=== PATIENT | male | born 1970 | race Caucasian/White ===

== ENCOUNTER → 2017-12-22 | Outpatient (CLI) | payer OTHER ==
[~2017-12-22] MED LIST: OPTIRAY 320 IV PRN
--- NOTE | 2017-12-22 11:42 | DIAGNOSTIC IMAGING REPORT ---
CT NECK WITH INTRAVENOUS CONTRAST HISTORY: Right facial pain. PAROTITIS TECHNIQUE: Multiaxial CT images of the neck performed following the use of intravenous contrast. COMPARISON STUDY: None. FINDINGS: The visualized brain parenchyma and orbits are unremarkable. There are few punctate calcifications within the left palatine tonsil. Otherwise, the major mucosal airway surfaces are intact. The prevertebral soft tissues and epiglottis are normal in thickness. The thyroid gland enhances normally. The visualized lungs are clear. No suspicious lytic or blastic osseous lesions. Mild mucosal thickening within the floor the left maxillary sinus and left sphenoid sinus. There is also mild mucosal thickening within the ethmoid air cells and left deviation of the nasal septum. Old, healed nasal bone fractures. The left parotid gland and submandibular glands enhance symmetrically. There is mild enhancement primarily within the superficial lobe of the right parotid gland. There is minimal adjacent fat stranding. The right parotid gland duct is normal in course and caliber. No stones identified within the duct. No significant cervical lymphadenopathy. The major cervical vessels enhance normally. However, both distal vertebral arteries are hypoplastic. 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 Therefore, this results in perfusion of the posterior circulation. IMPRESSION: 1. Asymmetric enhancement within the right parotid gland with minimal surrounding fat stranding. This is consistent with a parotitis. The right parotid gland duct is normal in caliber. No stones identified. . 2. 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 This results in perfusion of the posterior circulation of the brain. Electronically signed by: Adair Araujo M.D. 12/22/2017 11:41 AM Dictated Date/Time: 12/22/2017 11:27 AM
== END | disposition home or self-care (01) ==
LOC: C.CTS 11:05
PROVIDERS: ATTEND Nurse Practitioner Family
DX: K11.20 Sialoadenitis, unspecified (principal)

== ENCOUNTER 2021-01-20 05:10 | Inpatient (IN) ==
--- NOTE | 2020-12-25 14:00 | PAT Medication Instructions ---
Medication Instructions Date of Service December 25, 2020 Home Medications calcium carbonate [Tums] 300 mg PO BID PRN celecoxib [Celebrex] 100 mg PO BID cetirizine 10 mg PO QAM ASK your surgeon for instructions celecoxib [Celebrex] 100 mg PO BID DO NOT take the morning of surgery calcium carbonate [Tums] 300 mg PO BID PRN cetirizine 10 mg PO QAM Take evening before surgery calcium carbonate [Tums] 300 mg PO BID PRN (if needed) Other Notes If you have any questions please call us at [phone] or [phone] or [phone] or [phone]
--- NOTE | 2020-12-31 11:52 | Anesthesiology Consultation ---
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 Wears PPE, follows strict COVID guidelines. Patient fully vaccinated. No known COVID-19 positive contacts or current COVID-19 related symptoms. Surgeon arranging preop COVID testing (scheduled 01/15; [facility]). Awaiting results. Chart Review Chart Review: Acceptable Risk for Surgery and Patient seen in Pre Admission Testing Teaching & Discussion Pre-Anesthesia Teaching/Discussion Notes: Instructed NPO after midnight before surgery,except medications with 15 cc of water. Medication instructions provided according to the PAT guidelines. History Surgery Operation Date: 01/20/21 09:15 Proposed Procedures p Right Anterior Total Hip Arthroplasty - Varinder Saldaña DO Height/Weight Height: 6 ft 4 in Weight: 134.4 kg Allergies Allergy/AdvReac Type Severity Reaction Status Date / Time No Known Allergies Allergy Verified 12/25/20 08:50 Medications Home Medications Medication Instructions Recorded Confirmed Last Taken calcium carbonate [Tums] 300 mg PO BID PRN 12/25/20 12/25/20 Unknown celecoxib [Celebrex] 100 mg PO BID 12/25/20 12/25/20 Unknown cetirizine 10 mg PO QAM 12/25/20 12/25/20 Unknown Past Medical History Medical History Acid reflux Obesity Osteoarthritis Exercise / Class Metabolic Activity II 4-5 Yardwork/Stairs/Walk up hill (one flight of stairs (no chest pain/no sob)) Past Family History Family History Father Diabetes Past Surgical History Surgical History History of arthroscopy Left knee Hx of lymph node excision Cervical (as child) [place] teeth extracted Past Anesthesia History No Hx of Anesthesia Complications and No Family Hx of Anesthesia Complications History of PONV No Hx of PONV and Hx of Motion Sickness (As child, no recent issues) Social History Smoking Status: Never smoker Do You Dip or Chew Tobacco: No (quit 20 yrs ago) Hx Alcohol Use: Yes Alcohol type: beer alcohol intake frequency: holidays/special occasions only Hx Substance Use: No substance use type: does not use Review of Systems + snoring. No witnessed apnea events. Patient denies chest pain, shortness of breath, dyspnea on exertion, fever, chills, cough, wheezing, palpitations. Physical Exam Vital Signs VITALS BP 123/72 P 64 TEMP 98.4 SP02 96%RA RESP 16 PHYSICAL Full cervical extension range of motion. Full TMJ range of motion. TMD 3.5 finger breaths Mallampati Score 3 Dentition: intact Lungs: clear throughout to auscultation Cardiac: regular rate and rhythm, no murmurs noted Spine: normal Carotid arteries: negative bruit Extremities: no edema Thick neck Testing Laboratory Results 12/31/20 12:12 12/31/20 12:12 PT 9.8 Seconds (9.0-12.0) 12/31/20 12:12 INR 1.0 (0.9-1.1) 12/31/20 12:12 APTT 24.5 Seconds (21.0-31.0) 12/31/20 12:12 Hemoglobin A1c 4.8 % (4.5-5.6) 12/31/20 12:12 Urine Color Yellow 12/31/20 12:12 Urine Appearance Clear (Clear) 12/31/20 12:12 Urine pH 6.0 (4.5-7.5) 12/31/20 12:12 Ur Specific [place] 1.025 (1.000-1.030) 12/31/20 12:12 Urine Protein Negative (Negative) 12/31/20 12:12 Urine Glucose (UA) Negative (Negative) 12/31/20 12:12 Urine Ketones Negative (Negative) 12/31/20 12:12 Urine Nitrite Negative (Negative) 12/31/20 12:12 Ur Leukocyte Esterase Negative (Negative) 12/31/20 12:12 Blood Type A Positive 12/31/20 12:12 Antibody Screen NEGATIVE 12/31/20 12:12 Electrocardiogram Date: 12/31/20 Findings: + NSR @ (60) Chest X-Ray Date: 12/31/20 Findings: + NAD
--- NOTE | 2020-12-31 12:59 | XRay Report ---
XR chest Pre-admission PA/Lat CLINICAL HISTORY: Preoperative chest COMPARISON STUDY: No previous studies for comparison. FINDINGS: The cardiac and mediastinal contours are normal. There is no evidence of focal pulmonary co nsolidation. There is no evidence of failure. No pleural effusions are visualized.[ IMPRESSION: No active disease in the chest. ACT 112: Negative or not required by law. Electronically signed by: Ezequiel Catherine M.D. 12/31/2020 12:58 PM
[2020-12-31 14:15] LABS: Basophils # (auto) 0.03 K/uL (0-0.2); Basophils % (auto) 0.5 %; Eosinophils % (auto) 4.7 %; Hematocrit (blood only) 40.9 % (42-52); Hemoglobin 14.6 g/dL (14.0-18.0); Lymphocytes # (auto) 2.24 K/uL (1.2-3.4); Lymphocytes % (auto) 35.4 %; Mean Corpuscular Hemoglobin 31.7 pg (25-34); Mean Corpuscular Hgb Conc 35.7 g/dL (32-36); Mean Corpuscular Volume 88.9 fL (80-100); Mean Platelet Volume 10.4 fL (7.4-10.4); Monocytes # (auto) 0.29 K/uL (0.11-0.59); Monocytes % (auto) 4.6 %; Neutrophils # (auto) 3.46 K/uL (1.4-6.5); Neutrophils % (auto) 54.8 %; Platelet Count 245 K/uL (130-400); RDW Coefficient of Variation 12.8 % (11.5-14.5); RDW Standard Deviation 41.4 fL (36.4-46.3); White Blood Count 6.32 K/uL (4.8-10.8)
[2020-12-31 14:27] LABS: Estimated Average Glucose 91 mg/dl; Hemoglobin A1C 4.8 % (4.5-5.6)
[2020-12-31 14:58] LABS: Partial Thromboplastin Ratio 0.9; Partial Thromboplastin Time 24.5 Seconds (21.0-31.0); Prothrombin Time 9.8 Seconds (9.0-12.0)
[2020-12-31 15:07] LABS: Appearance Urine Clear (Clear); Bilirubin Urine Negative (Negative); Blood Urine Negative (Negative); Color Urine Yellow; Glucose Urine UA Negative (Negative); Ketones Urine Negative (Negative); Leukocyte Esterase Urine Negative (Negative); Nitrite Urine Negative (Negative); Protein Urine Negative (Negative); Specific Gravity Urine 1.025 (1.000-1.030); Urobilinogen Urine Negative (Negative)
[2020-12-31 16:14] LABS: Albumin Level 3.8 gm/dl (3.4-5.0); Calcium 9.3 mg/dl (8.5-10.1); Creatinine Clr Calc Pharmacy 136.4 ml/min; Est GFR (African American) 105.1; Est GFR (Non-African American) 90.7; Potassium 3.7 mmol/L (3.5-5.1)
--- NOTE | 2020-12-31 16:41 | Electrocardiogram Report ---
Test Reason : Blood Pressure : / mmHG Vent. Rate : 060 BPM Atrial Rate : 060 BPM P-R Int : 154 ms QRS Dur : 086 ms QT Int : 394 ms P-R-T Axes : 037 065 037 degrees QTc Int : 394 ms Normal sinus rhythm Normal ECG No previous ECGs available Confirmed by Brandin Mock ([id number]) on 12/31/2020 4:41:12 PM Referred By: Varinder Saldaña Confirmed By:Brandin Mock
--- NOTE | 2021-01-18 09:51 | History & Physical Report ---
Date of Service January 20, 2021 Assessment & Plan (1) Degenerative joint disease of right hip: I have indicated the patient for right anterior total hip replacement. The risks, benefits and complications of surgery were explained to the patient which include but not limited to infection, acute blood loss, DVT/PE, injury to nerves, vessels, bone, soft tissue, arthrofibrosis, chronic pain, failure of the prosthesis, hip dislocation, leg length discrepancy, need for additional surgery, cardiac and pulmonary events and . The patient wished to proceed with surgery and informed consent was obtained at this time. We will plan for 81mg ASA BID post-operatively for DVT prophylaxis. Upon discharge the patient will be discharged home with home health services. Appropriate clearances by PCP were obtained. History of Present Illness Chief Complaint: Right hip pain/DJD Primary Care Provider: Alyce Palmer MD The patient is a 50 year old male who presents with complaints of severe right hip pain and DJD. The patient has failed outpatient conservative treatments to this point which included NSAIDs, IA corticosteroid injection, home exercise/walking program. The patient's pain and limited function have progressed to the point where they severely hinder their activities of daily living and they no longer tolerate exercise programs. They are requesting to proceed with total hip replacement surgery. Allergies Allergy/AdvReac Type Severity Reaction Status Date / Time No Known Allergies Allergy Verified 12/25/20 08:50 Home Medications Medication Instructions Recorded Confirmed Type calcium carbonate [Tums] 300 mg PO BID PRN 12/25/20 01/20/21 History celecoxib [Celebrex] 100 mg PO BID 12/25/20 01/20/21 History cetirizine 10 mg PO QAM 12/25/20 01/20/21 History Past Med/Surg History Medical History Acid reflux Obesity Osteoarthritis Surgical History History of arthroscopy Left knee Hx of lymph node excision Cervical (as child) [place] teeth extracted Family History Father Diabetes Social History Smoking Status: Never smoker Second Hand Exposure: No; Do You Dip or Chew Tobacco: No (quit 20 yrs ago); Tobacco Cessation Education Requested by Patient: No Hx Alcohol Use: Yes Alcohol type: beer Hx Substance Use: No Preferred Language: Turkish Communication Ability: Effective Ophthalmic Medical Technician Required: No Beliefs That Will Affect Care: None Current Living Situation: Spouse Other Information That Helps Us Care for You: No Feels Safe at Home: Yes Safety Concerns: Feels Safe At This Time Assistive Devices: None Review of Systems Review of Systems: All systems reviewed & are unremarkable except as noted in HPI & below Constitutional: as per Subjective / HPI Physical Exam Physical Exam: RLE NVSI +EHL/FHL/TA/GS SILT grossly, +2 DP pulse, compartments soft NT, limited painful ROM of the hip, antalgic gait. Constitutional: WD/WN, vitals as above Eyes: PERRL, conjunctivae normal, anicteric sclerae ENMT: external ear and nose normal, oropharynx normal Neck: trachea midline, no thyromegaly Respiratory: normal respiratory effort, lungs clear to auscultation Cardiovascular: RRR, no murmur, no edema Gastrointestinal (Abdomen): normal bowel sounds, soft, nontender, no hepatosplenomegaly Musculoskeletal: no cyanosis or clubbing, extremities motor strength 5/5 Skin: no rashes, warm and dry Neurologic: patellar DTR's 2+ bilat, sensation intact Psychiatric: A+Ox3, euthymic affect Lymphatic: no cervical or axillary lymphadenopathy Results & Data Results & Data ([facility]) Diagnostic Findings Multiple views of the hip demonstrates severe DJD with complete loss of the joint space. +osteophytes, +sclerosis, +subchondral cysts. Pre Admission Testing Addendum Laboratory Results 12/31/20 12:12 12/31/20 12:12 PT 9.8 Seconds (9.0-12.0) 12/31/20 12:12 INR 1.0 (0.9-1.1) 12/31/20 12:12 APTT 24.5 Seconds (21.0-31.0) 12/31/20 12:12 Hemoglobin A1c 4.8 % (4.5-5.6) 12/31/20 12:12 Urine Color Yellow 12/31/20 12:12 Urine Appearance Clear (Clear) 12/31/20 12:12 Urine pH 6.0 (4.5-7.5) 12/31/20 12:12 Ur Specific [place] 1.025 (1.000-1.030) 12/31/20 12:12 Urine Protein Negative (Negative) 12/31/20 12:12 Urine Glucose (UA) Negative (Negative) 12/31/20 12:12 Urine Ketones Negative (Negative) 12/31/20 12:12 Urine Nitrite Negative (Negative) 12/31/20 12:12 Ur Leukocyte Esterase Negative (Negative) 12/31/20 12:12 Blood Type A Positive 12/31/20 12:12 Antibody Screen NEGATIVE 12/31/20 12:12
[2021-01-20] MEDS ORDERED: LR 500ML BOLUS, THEN 15ML/HR IV SCH (06:00)
[2021-01-20] MEDS ORDERED: CeleBREX 200 MG CAP PO SCH (06:00)
[2021-01-20] MEDS ORDERED: TRANEXAMIC ACID 1,000 MG **IV Intra-op IV SCH (06:00)
[2021-01-20] MEDS ORDERED: dexAMETHasone 4 MG TAB PO SCH (06:00)
[2021-01-20] MEDS ORDERED: GABAPENTIN 900 MG DOSE PO SCH (06:00)
[2021-01-20] MEDS ORDERED: Scopolamine 1 MG TDSY TD SCH (06:00)
[2021-01-20] MEDS ORDERED: FAMOTIDINE 20 MG TAB PO SCH (06:00)
[2021-01-20] MEDS ORDERED: ACETAMINOPHEN 500 MG TAB PO SCH (06:00)
[2021-01-20] MEDS ORDERED: TRANEXAMIC ACID 1,000 MG **IV Pre-op IV SCH (06:00)
[2021-01-20] MEDS ORDERED: ROPIVACAINE 0.5% HCL/PF 150 MG, BUPIVACAINE 0.75% MPF 20 ML, EPINEPHrine 30MG/30ML (OR ... INSTIL SCH (06:00)
[2021-01-20] MEDS ORDERED: BUPIVACAINE 0.5 % 5 MG/1 ML PF 10ML VIAL ONE (06:34)
[2021-01-20] MEDS ORDERED: PROPOFOL IV EMULSION 10 MG/ML 20 ML VIAL IV ONE ×7 (06:50→09:41)
[2021-01-20] MEDS ORDERED: MIDAZOLAM HCL 1 MG/ML 2ML VIAL ONE (06:50)
--- NOTE | 2021-01-20 07:02 | History & Physical Bridge Note ---
Date of Service January 20, 2021 History & Physical Bridge Note I have examined the patient, reviewed the History & Physical and in the interval since the performance of the History & Physical I have noted the following changes of clinical significance: no changes noted
[2021-01-20] MEDS ORDERED: ORTHO JOINT ANESTHETIC ONE (07:05)
[2021-01-20] MEDS ORDERED: ONDANSETRON INJ 2 MG/ML 2 ML VIAL IV PRN ×2 (07:28→11:08)
[2021-01-20] MEDS ORDERED: LABETALOL HCL IV 5 MG/ML 20ML IV PRN (07:28)
[2021-01-20] MEDS ORDERED: fentaNYL citrate PF 100 MCG/2 ML VIAL IV PRN (07:28)
[2021-01-20] MEDS ORDERED: HYDROmorphone INJ 1 MG/ML SYRINGE IV PRN (07:28)
[2021-01-20] MEDS ORDERED: ATROPINE SULFATE 0.1 MG/ML 10ML SYR IV PRN (07:28)
[2021-01-20] MEDS ORDERED: PHENYLEPHRINE 100MCG/ML 5ML SYR IV PRN (07:28)
[2021-01-20] MEDS ORDERED: ePHEDrine sulfate 50 MG/ML AMP IV PRN (07:28)
[2021-01-20] MEDS ORDERED: fentaNYL citrate PF 100 MCG/2 ML VIAL ONE (07:46)
[2021-01-20] MEDS ORDERED: ONDANSETRON INJ 2 MG/ML 2 ML VIAL ONE (08:38)
--- NOTE | 2021-01-20 09:44 | Post Operative Brief Note ---
Immediate Post Op Note v1 Date of Surgery January 20, 2021 Pre & Post Diagnosis Operation Date: 01/20/21 07:15 Pre-Op Diagnosis: Unilateral Primary Osteoarthritis Post-Op Diagnosis: Unilateral Primary Osteoarthritis I identified the patient and participated in the time-out.: Yes Procedure Operation Date: 01/20/21 07:15 Actual Procedures p Right Anterior Total Hip Arthroplasty(Right) - Varinder Saldaña DO Surgeon Varinder Saldaña DO Kettle Operator Moses Galeana Estimated Blood Loss 195 Findings Consistent with Post-Op Diagnosis Fluids See anesthesia report Specimens Femoral head Anesthesia Type Spinal MAC Complications none Disposition Disposition: Recovery Room Overlapping Procedure I was present for: the critical portions of procedure. I was immediately available: during the entire case. Back up surgeon: was not required during procedure.
--- NOTE | 2021-01-20 09:46 | Operative Report ---
Post Operative Report Pre & Post Diagnosis Operation Date: 01/20/21 07:15 Pre-Op Diagnosis: Unilateral Primary Osteoarthritis Post-Op Diagnosis: Unilateral Primary Osteoarthritis I identified the patient and participated in the time-out.: Yes Procedure Operation Date: 01/20/21 07:15 Actual Procedures p Right Anterior Total Hip Arthroplasty(Right) - Varinder Saldaña DO Surgeon Varinder Saldaña DO Senior Media Planner Moses Galeana Estimated Blood Loss 195 Findings Consistent with Post-Op Diagnosis Fluids See anesthesia report Specimens Femoral head Anesthesia Type Spinal MAC Complications none Disposition Disposition: Recovery Room Indications The patient is a 50-year-old male who presents with severe progressive right hip DJD who has failed outpatient conservative treatments. I indicated the patient for a total hip replacement and the risks and benefits were explained in detail which included but not limited to infection, bleeding, blood clot, damage to surrounding bone, nerves, vessels, soft tissue, hip dislocation, failure of the prosthesis, leg length discrepancy, need for additional surgery and . The patient agreed to proceed with replacement of the hip and informed consent was obtained. Appropriate clearances were obtained. Description of Procedure COMPONENTS USED: [employer] hip system: Acetabulum size 56, femur size 9 high offset, femoral head 36+8, liner 56x36, acetabular screw 25 mm x 1. DESCRIPTION OF PROCEDURE: Following satisfactory spinal anesthesia, the patient was placed supine on the OR table. The left leg was placed in the well leg dooley and the right leg in the traction device. The right leg was prepared with ChloraPrep and draped sterilely. A surgical timeout was performed, patient identified and site juan verified. Appropriate antibiotics were given. A standard anterior approach in the interval between the sartorius and tensor muscles was performed. Dissection was carried down through subcutaneous tissues. Electrocautery was utilized for hemostasis. Circumflex femoral vessels were identified, tied and ligated. The anterior capsular fat pad was removed and the capsulotomy was performed revealing the arthritic femoral neck and head. A femoral neck cut was made with reciprocating saw and the bone fragments removed. The acetabular self-retraining retractor was placed. Acetabular reaming was completed under fluoroscopic guidance, a 56 shell was impacted into an anatomic position and secured with a acetabular screw. Local anesthetic was placed and following irrigation, the polyethylene liner was placed. The femur was placed into position of external rotation, extension and adduction. Femoral canal was prepared up to the size 9 high offset. Trial reduction with a 36+8 neck length head showed good soft tissue tension, leg lengths restored, and good fit and fill of the proximal canal using fluoroscopic landmarks. The hip was dislocated. The trial component was removed. The final implant was placed. The hip was irrigated with sterile saline solution and reduced. A Betadine soak was performed. After 3 minutes, the hip was once more irrigated with copious sterile saline solution with bacitracin. Tiesha-incisional soft tissue was injected utilizing [place] [employer] which includes a combination of Ropivicaine 0.5% 150mg, Bupivicaine 0.5%/Epinephrine 1:200,000 30ml, Toradol 30mg, Dexamethasone 4mg, Ketamine 10mg, Clonidine 100mcg and NSS 30ml solution. The capsule was then closed with 1-0 Vicryl interrupted figure of eight sutures. The fascia was closed with a running suture of #1 Vicryl, the subcutaneous tissues with 2-0 Vicryl and the skin was closed with job and a sterile dry dressing was applied which included juno incisional VAC. The patient tolerated the procedure well and was transported to PACU in stable condition. Due to the complex nature of the procedure, the entire surgery was performed with the operational assistance of Moses Galeana PA-C. The microbiology lab assistant, under direct supervision, was involved in the actual performance of all aspects of the surgical procedure including patient positioning, hemostasis, tissue retraction, instrument management and wound closure. I attest to the content of the Intraoperative Record and any orders documented therein. Any exceptions are noted below.
--- NOTE | 2021-01-20 10:26 | Fluoroscopy Report ---
INTRAOPERATIVE RADIOGRAPHS CLINICAL HISTORY: Right hip arthroplasty. Fluoroscopy time: 45 seconds. FINDINGS: 2 spot fluoroscopic views of the right hip are presented. A bipolar right hip arthroplasty is in near anatomic alignment. A single cortical lag screw transfixes the acetabular cup. There is no evidence of fracture on these fluoroscopic views. IMPRESSION: Intraoperative right hip arthroplasty images as above. Electronically signed by: Abel Andre M.D. 01/20/2021 10:25 AM
--- NOTE | 2021-01-20 10:27 | Anesthesiology Progress Note ---
Date of Service January 20, 2021 Anesthesia Post Procedure Vital Signs Vital Signs: Temp Pulse Pulse Resp BP Pulse Ox 01/20/21 10:20 59 L 15 108/64 94 01/20/21 10:10 36.2 C L 71 16 115/77 98 01/20/21 05:54 36.9 C 85 20 129/82 97 Pain Intensity Right Hip: Pain Intensity: 1 Transfer of Care Handoff Completed per policy Notes Mental Status: alert / awake / arousable Patient Amnestic to Procedure: Yes Nausea / Vomiting: adequately controlled Pain: adequately controlled Airway Patency, RR, SpO2: stable & adequate BP & HR: stable & adequate Hydration State: stable & adequate Neuraxial Anesthesia: was administered and sensory block is resolving Anesthetic Complications: no major complications apparent and Pt Satisfied with anesthetic care
--- NOTE | 2021-01-20 10:52 | XRay Report ---
AP PELVIS, CROSSTABLE LATERAL RIGHT HIP History: Right total hip arthroplasty. Degenerative arthritis. Postop. FINDINGS: The patient is status post a right total hip arthroplasty. The hardware is intact. No fract ure or dislocation. Skin job are in place. IMPRESSION: Right total hip arthroplasty. No evidence for hardware complication ACT 112: Negative or not required by law. Electronically signed by: Adair Araujo M.D. 01/20/2021 10:50 AM
[2021-01-20] MEDS ORDERED: bisacodyL 10 MG SUPP PR PRN (11:08)
[2021-01-20] MEDS ORDERED: diphenhydrAMINE Capsule 25 MG CAP PO PRN (11:08)
[2021-01-20] MEDS ORDERED: MAGNESIUM HYDROXIDE SUSP 30 ML UDC PO PRN (11:08)
[2021-01-20] MEDS ORDERED: HYDROmorphone INJ 0.5 MG/0.5 ML SYR IV PRN (11:08)
[2021-01-20] MEDS ORDERED: NALOXONE HCL 0.4 MG/1 ML VIAL/CARP IV PRN (11:08)
[2021-01-20] MEDS ORDERED: ceFAZolin 2000MG 2,000 MG/15 ML SYR IV SCH (11:08)
[2021-01-20] MEDS ORDERED: oxyCODONE HCL IR 5 MG TAB (IMMEDIATE RELEASE) PO PRN (11:08)
[2021-01-20] MEDS ORDERED: METOCLOPRAMIDE HCL INJ 5 MG/ML 2 ML VIAL IV PRN (11:08)
[2021-01-20] MEDS: KETOROLAC TROMETHAMINE 15 MG/ML VIAL IV SCH ×3 (12:18→22:48)
[2021-01-20] MEDS: SODIUM CHLORIDE 0.9% 1,000 ML IV SCH ×2 (12:22→22:52)
[2021-01-20] MEDS: ACETAMINOPHEN 500 MG TAB PO SCH ×2 (13:56→22:45)
[2021-01-20] MEDS: ceFAZolin 3,000 MG in DEXTROSE 5% 50 ML IV SCH ×2 (15:22→22:46)
[2021-01-20] MEDS: Scopolamine CHECK PATCH PLACEMENT SCH (15:23)
--- NOTE | 2021-01-20 18:06 | Orthopedic Progress Note ---
Date of Service January 20, 2021 Assessment & Plan (1) Degenerative joint disease of right hip: Status post right anterior total hip arthroplasty -Ancef x24 -DVT prophylaxis: SCDs, teds, 81 mg ASA twice daily -Weight-bear as tolerates right lower extremity -PT/OT -Postoperative x-ray demonstrates a well aligned well fixed prosthesis without fracture or dislocation -A.m. labs -DC planning Admission and Anticipated Discharge Date Admission Date: January 20, 2021 Subjective Post Operative Progress Note Patient seen sitting in chair at bedside, comfortable, denies complaints, pain well controlled, no acute issues. Review of Systems Review of Systems: All systems reviewed & are unremarkable except as noted in HPI & below Constitutional: as per Subjective / HPI Physical Exam Physical Exam: RLE NVSI +EHL/FHL/TA/GS SILT grossly, +2 DP pulse, compartments soft NT, dressing cdi. Constitutional: WD/WN, vitals as above Results & Data ([facility]) Vital Signs (Past 12 Hours) Vital Signs Temp Pulse Pulse Resp BP Pulse Ox 01/20/21 14:09 36.4 C L 55 L 16 104/72 99 01/20/21 12:45 36.5 C 67 16 108/69 100 01/20/21 11:55 59 L 16 110/76 100 01/20/21 11:25 50 L 16 110/74 100 01/20/21 10:55 36.3 C L 64 16 108/70 100 01/20/21 10:40 36.4 C L 58 L 16 108/78 99 01/20/21 10:30 58 L 16 107/70 100 01/20/21 10:20 59 L 15 108/64 94 01/20/21 10:10 36.2 C L 71 16 115/77 98
[2021-01-20] MEDS: DOCUSATE SODIUM 100 MG CAP PO SCH (19:59)
[2021-01-20] MEDS ORDERED: SENNA 8.6 MG TAB PO SCH (21:00)
[2021-01-21] MEDS: Scopolamine CHECK PATCH PLACEMENT SCH ×2 (00:23→08:40)
[2021-01-21] MEDS: ACETAMINOPHEN 500 MG TAB PO SCH (05:39)
[2021-01-21] MEDS: KETOROLAC TROMETHAMINE 15 MG/ML VIAL IV SCH (05:40)
[2021-01-21] MEDS: ceFAZolin 3,000 MG in DEXTROSE 5% 50 ML IV SCH (05:42)
[2021-01-21 06:01] LABS: Basophils # (auto) 0.02 K/uL (0-0.2); Basophils % (auto) 0.2 %; Eosinophils # (auto) 0.01 K/uL (0-0.5); Eosinophils % (auto) 0.1 %; Hematocrit (blood only) 34.7 % (42-52); Hemoglobin 12.4 g/dL (14.0-18.0); Immature Granulocytes # (auto) 0.01 K/uL (0.00-0.02); Immature Granulocytes % (auto) 0.1 %; Lymphocytes # (auto) 1.47 K/uL (1.2-3.4); Lymphocytes % (auto) 12.7 %; Mean Corpuscular Hemoglobin 32.4 pg (25-34); Mean Corpuscular Hgb Conc 35.7 g/dL (32-36); Mean Corpuscular Volume 90.6 fL (80-100); Mean Platelet Volume 10.1 fL (7.4-10.4); Monocytes # (auto) 0.79 K/uL (0.11-0.59); Monocytes % (auto) 6.8 %; Neutrophils # (auto) 9.27 K/uL (1.4-6.5); Neutrophils % (auto) 80.1 %; Platelet Count 208 K/uL (130-400); RDW Coefficient of Variation 13.1 % (11.5-14.5); RDW Standard Deviation 43.4 fL (36.4-46.3); Red Blood Count 3.83 M/uL (4.7-6.1); White Blood Count 11.57 K/uL (4.8-10.8)
[2021-01-21 06:25] LABS: BUN Creatinine Ratio 12.7 (10-20); Calcium 8.6 mg/dl (8.5-10.1); Creatinine Clr Calc Pharmacy 139.5 ml/min; Est GFR (African American) 110.6 ml/min; Est GFR (Non-African American) 95.4 ml/min; Potassium 4.1 mmol/L (3.5-5.1)
[2021-01-21] MEDS: DOCUSATE SODIUM 100 MG CAP PO SCH (08:40)
[2021-01-21] MEDS ORDERED: MULTIVITAMIN TAB PO SCH (09:00)
[2021-01-21] MEDS ORDERED: CETIRIZINE HCL 10 MG TABLET PO SCH (09:00)
[2021-01-21] MEDS ORDERED: ASPIRIN 81 MG ECTAB PO SCH (09:00)
--- NOTE | 2021-01-21 09:14 | Anesthesiology Progress Note ---
Date of Service January 21, 2021 Anesthesia Post Procedure Vital Signs Vital Signs: Temp Pulse Pulse Pulse Resp BP Pulse Ox 01/21/21 07:45 36.6 C 50 L 16 116/75 100 01/21/21 03:17 36.9 C 54 L 16 104/67 99 01/20/21 22:28 36.8 C 51 L 16 105/63 100 01/20/21 19:42 36.5 C 55 L 16 113/69 100 01/20/21 14:09 36.4 C L 55 L 16 104/72 99 01/20/21 12:45 36.5 C 67 16 108/69 100 01/20/21 11:55 59 L 16 110/76 100 01/20/21 11:25 50 L 16 110/74 100 01/20/21 10:55 36.3 C L 64 16 108/70 100 01/20/21 10:40 36.4 C L 58 L 16 108/78 99 01/20/21 10:30 58 L 16 107/70 100 01/20/21 10:20 59 L 15 108/64 94 01/20/21 10:10 36.2 C L 71 16 115/77 98 Pain Intensity Right Hip: Pain Intensity: 0 Notes Mental Status: alert / awake / arousable and participated in evaluation Patient Amnestic to Procedure: Yes Nausea / Vomiting: adequately controlled Pain: adequately controlled Airway Patency, RR, SpO2: stable & adequate BP & HR: stable & adequate Hydration State: stable & adequate Neuraxial Anesthesia: was administered and sensory block resolved Anesthetic Complications: no major complications apparent
--- NOTE | 2021-01-21 09:41 | Orthopedic Progress Note ---
Date of Service January 21, 2021 Assessment & Plan (1) Degenerative joint disease of right hip: Status post right anterior total hip arthroplasty POD#1 -Ancef x24 -DVT prophylaxis: SCDs, teds, 81 mg ASA twice daily -Weight-bear as tolerates right lower extremity -PT/OT -Postoperative x-ray demonstrates a well aligned well fixed prosthesis without fracture or dislocation -A.m. labs - as above, hgb 12.4 -DC planning - home with Admission and Anticipated Discharge Date Admission Date: January 20, 2021 Subjective Post Operative Progress Note Patient seen sitting in chair at bedside, comfortable, denies complaints, pain well controlled, no acute issues. Denies F/C/N/V/SOB/CP. Review of Systems Review of Systems: All systems reviewed & are unremarkable except as noted in HPI & below Constitutional: as per Subjective / HPI Physical Exam Physical Exam: RLE NVSI +EHL/FHL/TA/GS SILT grossly, +2 DP pulse, compartments soft NT, dressing cdi. Constitutional: WD/WN, vitals as above Results & Data ([facility]) Vital Signs (Past 12 Hours) Vital Signs Temp Pulse Pulse Resp BP Pulse Ox 01/21/21 07:45 36.6 C 50 L 16 116/75 100 01/21/21 03:17 36.9 C 54 L 16 104/67 99 01/20/21 22:28 36.8 C 51 L 16 105/63 100 Laboratory Results 01/21/21 01/21/21 Range/Units 05:44 05:44 WBC 11.57 H (4.8-10.8) K/uL RBC 3.83 L (4.7-6.1) M/uL Hgb 12.4 L (14.0-18.0) g/dL Hct 34.7 L (42-52) % MCV 90.6 (80-100) fL MCH 32.4 (25-34) pg MCHC 35.7 (32-36) g/dL RDW Std Deviation 43.4 (36.4-46.3) fL RDW Coeff of Jhon 13.1 (11.5-14.5) % Plt Count 208 (130-400) K/uL MPV 10.1 (7.4-10.4) fL Immature Gran % (Auto) 0.1 % Neut % (Auto) 80.1 % Lymph % (Auto) 12.7 % [place] % (Auto) 6.8 % Eos % (Auto) 0.1 % Baso % (Auto) 0.2 % Neut # (Auto) 9.27 H (1.4-6.5) K/uL Lymph # (Auto) 1.47 (1.2-3.4) K/uL [place] # (Auto) 0.79 H (0.11-0.59) K/uL Eos # (Auto) 0.01 (0-0.5) K/uL Baso # (Auto) 0.02 (0-0.2) K/uL Immature Gran # (Auto) 0.01 (0.00-0.02) K/uL Sodium 140 (136-145) mmol/L Potassium 4.1 (3.5-5.1) mmol/L Chloride 110 H (98-107) mmol/L Carbon Dioxide 27 (21-32) mmol/L Anion Gap 2.0 L (3-11) BUN 12 (7-18) mg/dl Creatinine 0.93 (0.6-1.4) mg/dl Est Cr Clr Drug Dosing 139.5 ml/min Est GFR ( Amer) 110.6 ml/min Est GFR (Non-Af Amer) 95.4 ml/min BUN/Creatinine Ratio 12.7 (10-20) Glucose 109 H (70-99) mg/dl Calcium 8.6 (8.5-10.1) mg/dl
[2021-01-21] MEDS ORDERED: CeleBREX 200 MG CAP PO SCH (21:00)
--- NOTE | 2021-01-24 13:22 | Discharge Summary ---
Date of Service January 24, 2021 Admission HPI Per Admitting Provider The patient is a 50 year old male who presents with complaints of severe right hip pain and DJD. The patient has failed outpatient conservative treatments to this point which included NSAIDs, IA corticosteroid injection, home exercise/walking program. The patient's pain and limited function have progressed to the point where they severely hinder their activities of daily living and they no longer tolerate exercise programs. They are requesting to proceed with total hip replacement surgery. Principal Diagnosis Right anterior total hip replacement Discharge Exam RLE NVSI +EHL/FHL/TA/GS SILT grossly, +2 DP pulse, compartments soft NT, dressing cdi. Constitutional WD/WN, vitals as above Discharge Data Allergies Allergy/AdvReac Type Severity Reaction Status Date / Time No Known Allergies Allergy Verified 12/25/20 08:50 Procedures Performed Operation Date: 01/20/21 07:15 Actual Procedures p Right Anterior Total Hip Arthroplasty(Right) - Varinder Saldaña DO Ordered Studies 01/20/21 07:15 FL hip RT 1V Routine Hospital Course (1) Degenerative joint disease of right hip: Hospital Course: On 01/20/21 the patient was taken to the operating room, adequate anesthesia administered and underwent a right anterior total hip arthroplasty. The patient tolerated the procedure well and was taken to the PACU in stable condition. Post-operatively the patient was started on a DVT ppx medication and given appropriate IV antibiotics. Consults were placed to physical therapy, occupational therapy and case management. On POD#1, the patient did well overnight and their pain was well controlled. Labs were drawn and the Hgb was 12.4. The patient progressed well with PT. Dressings were changed at this time and the incision was clean, dry and intact. The patients hospital stay was relatively uneventful and they were deemed stable by the orthopedic team and consultants to be discharged home with on 01/21/21. Discharge Instructions: Upon discharge the patient may weight bear as tolerates through their operative extremity. They were instructed to keep the incision clean and dry at all times. The patient may shower but should not submerge the incision, avoid bathing, pools and hot tubs. The patient was given a script for pain medication and should take as instructed. The patient was given a script for DVT ppx 81mg ASA BID and should take as directed. The patient was instructed to not drive or travel for long distances until cleared to do so. If the patient develops any symptoms of fevers, chills, nausea, vomiting, increased redness, swelling, pain or drainage from the surgical site, they should notify the office and/or proceed to the nearest emergency room. The patient should follow up in 10-14 days after surgery for their routine post-operative follow-up appointment and should call the office, to confirm the date and time. Status post right anterior total hip arthroplasty POD#1 -Ancef x24 -DVT prophylaxis: SCDs, teds, 81 mg ASA twice daily -Weight-bear as tolerates right lower extremity -PT/OT -Postoperative x-ray demonstrates a well aligned well fixed prosthesis without fracture or dislocation -A.m. labs - as above, hgb 12.4 -DC planning - home with HH Total Time Total Time Spent Total Time Spent (In Minutes): 30 Discharge Plan Discharge Items Patient Disposition: Home - Home Health Services Reason For Visit: Unilateral Primary Osteoarthritis Discharge Diagnosis: Right anterior total hip replacement Condition on Discharge: Good Activity: Per Instructions section Lifting: Wait until after follow-up appointment Bathing: Keep incision dry Bathing Comment: No bathing, pools or hot tubs. Sexual Activity: Wait until after follow-up appointment Exercise/Sports: Wait until after follow-up appointment Driving/Machine Use: No driving. Weightbearing: Full weightbearing Non-emergency contact: Primary Care Provider and Surgeon Call non-emergency contact if: you have any medication questions, your symptoms worsen, your pain is not controlled, your pain is worsening, your pain is unusual for you, your pain is concerning for you, you have a fever, your te mperature is above 101, your wound has increased redness, your wound has increased drainage and your wound pain has increased Follow-up/Referrals: Alyce Palmer MD [Primary Care Provider] - Diet: Regular Addtl Attending Provider Instructions: ACTIVITY RECOMMENDATIONS: SELF CARE INSTRUCTIONS AFTER TOTAL HIP REPLACEMENT : Direct Anterior Approach Until the incision and soft tissues around your hip have healed, there is a possibility that the hip prosthesis could dislocate. A. Hip flexion ( Up & Down out of chair or steps ) may be difficult. This is normal. B. Numbness in front of the thigh is also normal for a few weeks. C. Use hand rails when walking on stairs. D. Wear low heeled shoes with non-slip soles. E. Be sure that your floors are free of things that could trip you - throw rugs, electrical cords, small objects. Avoid wet and waxed floors, especially with crutches and canes. F. Try to walk several times a day with rest periods between. G. Continue with all the exercises taught to you in the hospital. Again, make walking a part of your daily routine. SPECIAL CARE INSTRUCTIONS: VERY IMPORTANT TO READ AND REVIEW A. You may still be at risk for phlebitis and blood clots. 1. Wear surgical stockings (MICHAELA hose) for 2 weeks after surgery to improve circulation and reduce swelling. 2. Take Aspirin 81mg twice daily for 4 weeks or as directed by your doctor. This is your blood thinner. 3. High risk patients may be prescribed a stronger blood thinner if necessary. 4. If you are on Coumadin normally, your family doctor/regional project manager should monitor your blood work. Expect a phone call the day of or the day after bloodwork is drawn to adjust your dosage. B. You must take antibiotics before having dental work, bladder, bowel and other surgery. Your doctor will provide you with a permanent card to carry describing precautions. C. Call [facility] if you have a fever, redness or swelling around the incision, cloudy drainage from incision, or sudden increase in pain in your hip, not relieved by your regular pain medication. D. Please call the office at if you have any concerns or questions about your operation or recovery. * YOU MAY SHOWER, NO TUB BATHS UNTIL CLEARED BY YOUR DOCTOR. - Keep an extra close eye on the top portion of your incision. Be sure to keep clean & dry. * WEAR MICHAELA HOSE 20 HOURS PER DAY FOR 2 WEEKS. * YOU MAY PROGRESS FROM A WALKER, TO A CANE, TO INDEPENDENT AT YOUR OWN PACE. * MOST PATIENTS WILL HAVE HOME NURSING FOR THERAPY. IF YOU DECIDE TO DO OUTPATIENT PHYSICAL THERAPY, PLEASE SCHEDULE THIS 3 TIMES PER WEEK. *PARIS incisional vac is a special dressing covering your incision. This dressing provides a sterile dry environment while you are healing. The dressing is to be left in place for 7 days post-operatively. Your home nurse or surgeon will remove. If you develop any redness or blisters or have any questions notify your surgeon immediately. FOLLOW UP VISIT: If appointment is not already scheduled: Please call [facility] [place] [facility] to make a follow-up appointment for 2 weeks after your surgery at . Pending Studies at Discharge: No Stand-Alone Forms: My [facility], Opioid Pain Management, Smoking Cessation Medications and DC Order Prescriptions: New celecoxib [Celebrex] 200 mg Capsule 200 mg PO BID PRN (Reason: pain/inflammation) Qty: 30 RF: 0 aspirin 81 mg Tablet,Delayed Release (Dr/Ec) 81 mg PO BID Qty: 56 RF: 0 acetaminophen 500 mg Tablet 1,000 mg PO Q8 PRN (Reason: pain/fevers) Qty: 90 RF: 0 oxycodone 5 mg Tablet 5 mg PO Q6H MDD 4 PRN (Reason: pain) Qty: 30 RF: 0 sennosides [Senokot] 8.6 mg Tablet 17.2 mg PO HS PRN (Reason: constipation) Qty: 30 RF: 0 Continued cetirizine 10 mg Tablet 10 mg PO QAM RF: 0 calcium carbonate [Tums] 300 mg (750 mg) Tablet,Chewable 300 mg PO BID PRN (Reason: Heartburn) RF: 0 Discontinued celecoxib [Celebrex] 100 mg Capsule 100 mg PO BID RF: 0 Discharge Orders: Discharge Order (Routine); Ordered 01/21/21 Ordered By: Moses Sesay/Other Patient Handouts: Preventing Deep Vein Thrombosis Admission Data Admit Date/Time: 01/20/21 10:12 Attending Provider: Varinder Saldaña Admit Provider: Varinder Saldaña Primary Care Provider: Alyce Palmer Other Interventions: Discharge Summary Assessment (RN) Last Done: 01/21/21 09:59
== END 2021-01-21 12:20 | disposition home health service (06) ==
LOC: 3E 05:10 → ASU 05:10 → OBSVTOIN 10:12